=== PATIENT | female | born 1955 | race Caucasian/White ===

== ENCOUNTER 2025-06-17 22:42 | Inpatient (IN) | payer OTHER, MEDICARE, MEDICAID ==
[~2025-06-17] VITALS: Ht 165.1 cm; Wt 88.5 kg
[2025-06-17 22:46] VITALS: O2SAT 98
[2025-06-18] MEDS: MORPHINE SULFATE 2 MG/ML INJ (NOT FOR IM USE) IV ONE (00:06)
[2025-06-18] MEDS: LIDOCAINE 5% PATCH TOP SCH (00:06)
[2025-06-18 01:10] LABS: CREATININE 0.3 mg/dL (0.6-1.0); UREA NITROGEN BLOOD 8 mg/dL (9-23)
[2025-06-18] MEDS ORDERED: POTASSIUM ACETATE IV SCH (01:15)
[2025-06-18 02:14] LABS: BASOPHILS % 0.7 % (0.0-2.0); EOSINOPHILS % 1.7 % (0.0-5.0); HEMATOCRIT. 39.8 % (36.0-48.0); HEMOGLOBIN. 12.7 g/dL (12.0-16.0); LYMPHOCYTES % 26.0 % (20.0-50.0); MEAN PLATELET VOLUME 8.9 fl (7.4-10.4); MONOCYTES % 7.9 % (2.0-8.0); NEUTROPHILS % 63.7 % (40.0-76.0); PLATELET 235 x1000/uL (130-400); RED BLOOD CELL COUNT 4.59 mill/uL (4.2-5.4); RED CELL DISTRIBUTION WIDTH 14.5 % (11.6-14.6)
[2025-06-18] MEDS: POTASSIUM CHLORIDE 20MEQ/PACKET PO ONE (02:26)
[2025-06-18] MEDS ORDERED: POTASSIUM CHLORIDE 30 MEQ in DEXT 5%/0.9% NACL 985 ML IV SCH (03:00)
[2025-06-18 03:49] LABS: BASOPHILS % 0.7 % (0.0-2.0); EOSINOPHILS % 1.7 % (0.0-5.0); HEMATOCRIT. 39.0 % (36.0-48.0); HEMOGLOBIN. 12.6 g/dL (12.0-16.0); LYMPHOCYTES % 25.4 % (20.0-50.0); MEAN PLATELET VOLUME 9.3 fl (7.4-10.4); MONOCYTES % 8.1 % (2.0-8.0); NEUTROPHILS % 64.1 % (40.0-76.0); PLATELET 227 x1000/uL (130-400); RED BLOOD CELL COUNT 4.52 mill/uL (4.2-5.4); RED CELL DISTRIBUTION WIDTH 14.7 % (11.6-14.6)
[2025-06-18 03:59] LABS: CREATININE 0.8 mg/dL (0.6-1.0); UREA NITROGEN BLOOD 11 mg/dL (9-23)
[2025-06-18 04:01] LABS: ASPARTATE AMINOTRANSFERASE 20 IU/L (<34)
[2025-06-18 04:02] LABS: BILIRUBIN TOTAL 0.4 mg/dL (0.1-1.0); PROTEIN TOTAL 7.1 g/dL (6.0-8.3)
[2025-06-18] MEDS ORDERED: ALEN70TA79 PO (05:06)
[2025-06-18 06:46] VITALS: BP 139/80; PULSE 80; RESP 20; TEMP 36.14
[2025-06-18] MEDS: PANTOPRAZOLE SODIUM 40 MG/VIAL IV SCH (09:00)
[2025-06-18] MEDS ORDERED: CALCIUM CHLORIDE 1GM/10ML SYR IV ONE (09:00)
[2025-06-18] MEDS: KETOROLAC 30MG/ML VIAL IV PRN (11:04)
[2025-06-18] MEDS: POTASSIUM CHLORIDE 20MEQ TABLET SR PO NR (11:05)
[2025-06-18 12:00] VITALS: BP 118/61; PULSE 65; PULSE 68; RESP 18; TEMP 36.4; TEMP 36.7; O2SAT 97
[2025-06-18] MEDS: DEXT 5%/0.45% NACL 1000ML 1,000 ML IV SCH (13:15)
[2025-06-18 16:00] VITALS: BP 113/56; PULSE 66; TEMP 36.6; O2SAT 96
[2025-06-18 20:00] VITALS: BP 117/57; PULSE 74; RESP 18; TEMP 36.4; O2SAT 95
[2025-06-19] VITALS: BP 105/53; PULSE 75; RESP 18; TEMP 36.3; O2SAT 95
[2025-06-19 04:00] VITALS: BP 118/63; PULSE 75; RESP 18; TEMP 36; O2SAT 95
[2025-06-19 06:08] LABS: PLATELET 200 x1000/uL (130-400); RED BLOOD CELL COUNT 4.16 mill/uL (4.2-5.4); RED CELL DISTRIBUTION WIDTH 14.4 % (11.6-14.6)
[2025-06-19 06:24] LABS: CREATININE 0.8 mg/dL (0.6-1.0); UREA NITROGEN BLOOD 17 mg/dL (9-23)
[2025-06-19 06:26] LABS: PHOSPHORUS 4.4 mg/dL (2.5-4.9)
[2025-06-19 08:00] VITALS: BP 112/60; PULSE 78; RESP 18; TEMP 37; O2SAT 97
[2025-06-19] MEDS: POTASSIUM CHLORIDE 20MEQ/PACKET PO SCH (10:30)
[2025-06-19] MEDS ORDERED: PANTOPRAZOLE SODIUM 40 MG/VIAL IV SCH (10:30)
[2025-06-19 11:48] LABS: TRIGLYCERIDE 147 mg/dL (0-150)
[2025-06-19 11:49] LABS: LDL CHOLESTEROL 169 mg/dL (5-100)
[2025-06-19 12:00] VITALS: BP 128/57; PULSE 73; RESP 18; TEMP 36.4; O2SAT 96
[2025-06-19 16:00] VITALS: BP 128/62; PULSE 78; RESP 18; TEMP 36.6; O2SAT 96
[2025-06-19 20:00] VITALS: BP 140/65; PULSE 69; RESP 18; TEMP 36.2; O2SAT 97
[2025-06-19] MEDS ORDERED: ALEN70TA84 MT (20:09)
[2025-06-19] MEDS ORDERED: T3 PO (20:09)
[2025-06-19] MEDS ORDERED: NALOXONE HCL 0.4MG/ML VIAL IV PRN (20:15)
[2025-06-19] MEDS ORDERED: MORPHINE SULFATE 2 MG/ML INJ (NOT FOR IM USE) IV PRN (20:15)
[2025-06-19] MEDS ORDERED: ACETAMINOPHEN WITH CODEINE 300/30MG TABLET PO PRN (20:15)
[2025-06-19] MEDS: ATORVASTATIN CALCIUM 20MG TABLET PO SCH (21:38)
[2025-06-20] VITALS: BP 112/48; PULSE 91; RESP 19; TEMP 36.1; O2SAT 95
[2025-06-20 04:00] VITALS: BP 112/46; PULSE 73; RESP 18; TEMP 36.2; O2SAT 96
[2025-06-20] MEDS ORDERED: IOHEXOL-350 100 ML BOTTLE ONE (07:22)
[2025-06-20 08:00] VITALS: BP 151/67; PULSE 76; RESP 18; TEMP 36.6; O2SAT 98
[2025-06-20] MEDS: LIDOCAINE 5% PATCH TOP SCH (09:38)
[2025-06-20 10:21] VITALS: BP_SYST 134; BP_SYST 151; BP_DIAS 67; BP_DIAS 76; PULSE 75; PULSE 76; RESP 18; TEMP 97.9
[2025-06-20 12:00] VITALS: BP 134/76; PULSE 88; RESP 18; TEMP 36.4; O2SAT 98
== END 2025-06-20 13:02 | disposition home health service (06) | DRG 206 ==
LOC: ER 22:42 → EDBEDREQ 06-18 03:35 → EDBEDREQSVC 06-18 03:35 → EDBEDREQTM 06-18 03:35 → ENRESERV 06-18 03:40 → 4WST 06-18 04:29
PROVIDERS: ADMIT Internal Medicine; ATTEND Internal Medicine
DX: M94.0 Chondrocostal junction syndrome [Tietze] (principal); E83.51 Hypocalcemia; S29.8XXA Other specified injuries of thorax, initial encounter; E87.6 Hypokalemia; M79.9 Soft tissue disorder, unspecified; X58.XXXA Exposure to other specified factors, initial encounter; Y93.89 Activity, other specified; Y99.8 Other external cause status; Y92.89 Other specified places as the place of occurrence of the external cause; V89.2XXA Person injured in unspecified motor-vehicle accident, traffic, initial encounter; Z79.899 Other long term (current) drug therapy
CPT/HCPCS: 36415; 71275; 73562; 73590; 74174; 80048; 80053; 80061; 82728; 83540; 83550; 83735; 84100; 85025; 85027; 85044; 93005; 93970; 96374; 97165; 99285; J1885; J2270; J2470; Q9967